=== PATIENT | male | born 1965 | race Caucasian/White ===

== ENCOUNTER 2018-12-02 12:17 | Inpatient (IN) | payer OTHER ==
[2018-12-02 12:46] VITALS: BMI 20.9
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
[2018-12-02] MEDS ORDERED: P-EPHED 60MG/TRIPROLIDI 2.5MG TABLET PO PRN (14:59)
[2018-12-02] MEDS ORDERED: MAGNESIUM HYDROX 2400MG/30ML ORAL SUSPENSION 30 ML CUP PO PRN (14:59)
[2018-12-02] MEDS ORDERED: guaiFENesin/D-METHORPHAN HB 10 ML UNIT-DOSE CUPS PO PRN (14:59)
[2018-12-02] MEDS ORDERED: hydrOXYzine PAMOATE 25 MG CAPSULE (FP) PO PRN (14:59)
[2018-12-02] MEDS ORDERED: MENTHOL/PHENOL 1 EACH UD MM PRN (14:59)
[2018-12-02] MEDS ORDERED: chlordiazePOXIDE HCL 25 MG CAPSULE PO PRN (14:59)
[2018-12-02] MEDS ORDERED: IBUPROFEN 400 MG TABLET (FP) PO PRN (14:59)
[2018-12-02] MEDS ORDERED: MAGNESIUM CITRATE 300 ML BOTTLE PO PRN (14:59)
[2018-12-02] MEDS ORDERED: LOPERAMIDE HCL 2 MG CAPSULE PO PRN (14:59)
[2018-12-02] MEDS ORDERED: NICOTINE POLACRILEX 2 MG GUM BUC PRN (14:59)
[2018-12-02] MEDS: chlordiazePOXIDE HCL 25 MG CAPSULE PO SCH ×2 (17:08→22:14)
[2018-12-02] MEDS: NICOTINE 14 MG/24 HOURS TOPICAL PATCH TD SCH (17:13)
[2018-12-02] MEDS: MELATONIN 5 MG TABLETS PO PRN (22:14)
[2018-12-02] MEDS: THIAMINE HCL 100 MG TABLET (FP) PO SCH (22:14)
[2018-12-03] MEDS: chlordiazePOXIDE HCL 25 MG CAPSULE PO SCH ×4 (06:02→22:43)
[2018-12-03] MEDS: ACETAMINOPHEN 325 MG TABLET (FP) PO PRN (06:03)
[2018-12-03] MEDS: NICOTINE 14 MG/24 HOURS TOPICAL PATCH TD SCH (10:33)
[2018-12-03] MEDS: PRENATAL VITAMINS W/ FOLIC ACID TABLET (FP) PO SCH (10:33)
[2018-12-03 10:36] LABS: ALBUMIN 3.3 g/dl (3.4-5.0); ALK PHOS 72 U/L (45-117); ANION GAP 9 MMOL/L (8-16); BILIRUBIN,TOTAL 0.4 mg/dL (0.2-1); BLOOD UREA NITROGEN 16 mg/dL (7-18); CALCIUM 9.1 mg/dL (8.5-10.1); CHLORIDE 104 mmol/L (98-107); CO2 27 mmol/L (21-32); CREATININE 0.9 mg/dL (0.55-1.3); GLUCOSE,RANDOM 88 mg/dL (74-106); POTASSIUM 3.9 mmol/L (3.5-5.1); SGOT/AST 44 U/L (15-37); SGPT/ALT 55 U/L (13-61); SODIUM 140 mmol/L (136-145); TOT PROT 6.8 g/dl (6.4-8.2)
[2018-12-03 10:55] LABS: HEMATOCRIT 40.1 % (35.4-49); MCHC 34.9 g/dl (32.0-35.9); MEAN CELL VOLUME 97.4 fl (80-96); PLATELET COUNT 335 K/MM3 (134-434); RBC 4.11 M/mm3 (4.00-5.60); RDW 13.6 % (11.9-15.9); WHITE BLOOD COUNT 5.2 K/mm3 (4.0-10.0)
--- NOTE | 2018-12-03 11:49 | EKG ---
Test Reason : Blood Pressure : / mmHG Vent. Rate : 087 BPM Atrial Rate : 087 BPM P-R Int : 144 ms QRS Dur : 078 ms QT Int : 352 ms P-R-T Axes : 080 071 067 degrees QTc Int : 423 ms NORMAL SINUS RHYTHM WITH SINUS ARRHYTHMIA NORMAL ECG NO PREVIOUS ECGS AVAILABLE Confirmed by GAURAV YOUSSEF, SEUN ([id number]) on 12/03/2018 11:49:38 AM Referred By: Confirmed By:SEUN NOLASCO MD
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
--- NOTE | 2018-12-03 16:14 | PN ---
S CIWA - CIWA Score Nausea/Vomitin-No Nausea/No Vomiting Muscle Tremors: 2 Anxiety: 2 Agitation: 1-Slight > Activity Paroxysmal Sweats: 3 Orientation: 0-Oriented Tacttile Disturbances: 0-None Auditory Disturbances: 0-None Visual Disturbances: 3-Moderate Sensitivity Headache: 0-None Present CIWA-Ar Total Score: 11 BHS Progress Note (SOAP) Subjective: Tremors, Anxious, Sweating. Objective: PATIENT A & O X 3, OBSERVED AMBULATING ON UNIT. IN NO ACUTE DISTRESS. 12/03/18 16:21 Vital Signs Temperature 97.0 F L 12/03/18 13:09 Pulse Rate 86 12/03/18 13:09 Respiratory Rate 18 12/03/18 13:09 Blood Pressure 108/71 12/03/18 13:09 O2 Sat by Pulse Oximetry (%) Laboratory Tests 12/03/18 12/03/18 12/03/18 07:00 07:00 07:00 WBC 5.2 RBC 4.11 Hgb 14.0 Hct 40.1 MCV 97.4 H MCH 34.0 H MCHC 34.9 RDW 13.6 Plt Count 335 MPV 8.0 Sodium 140 Potassium 3.9 Chloride 104 Carbon Dioxide 27 Anion Gap 9 BUN 16 Creatinine 0.9 Creat Clearance w eGFR > 60 Random Glucose 88 Calcium 9.1 Total Bilirubin 0.4 AST 44 H ALT 55 Alkaline Phosphatase 72 Total Protein 6.8 Albumin 3.3 L HIV 1&2 Antibody Screen Negative HIV P24 Antigen Negative LABS NOTED. RPR RESULT PENDING. 12/03/18 16:23 Assessment: 12/03/18 16:22 WITHDRAWAL SYMPTOMS. Plan: CONTINUE DETOX. INCREASE DAILY PO FLUID INTAKE.
[2018-12-03] MEDS: MAG HYDROX/AL HYDROX/SIMETH 30 ML UNIT-DOSE CUP PO PRN ×2 (17:36→22:42)
[2018-12-03] MEDS: THIAMINE HCL 100 MG TABLET (FP) PO SCH (22:43)
[2018-12-04] MEDS: chlordiazePOXIDE HCL 25 MG CAPSULE PO SCH ×2 (06:15→10:25)
[2018-12-04] MEDS: PRENATAL VITAMINS W/ FOLIC ACID TABLET (FP) PO SCH (10:25)
[2018-12-04] MEDS: NICOTINE 14 MG/24 HOURS TOPICAL PATCH TD SCH (10:26)
--- NOTE | 2018-12-04 14:54 | PN ---
S CIWA - CIWA Score Nausea/Vomitin-No Nausea/No Vomiting Muscle Tremors: 2 Anxiety: 3 Agitation: 0-Normal Activity Paroxysmal Sweats: 2 Orientation: 0-Oriented Tacttile Disturbances: 1-Very Mild Itch/Numbness Auditory Disturbances: 0-None Visual Disturbances: 2-Mild Sensitivity Headache: 0-None Present CIWA-Ar Total Score: 10 BHS Progress Note (SOAP) Subjective: Body Aches, Anxious, Tremors. Objective: PATIENT A & O X 3. IN NO ACUTE DISTRESS. 12/04/18 14:55 Vital Signs Temperature 98.6 F 12/04/18 13:43 Pulse Rate 85 12/04/18 13:43 Respiratory Rate 18 12/04/18 13:43 Blood Pressure 100/61 12/04/18 13:43 O2 Sat by Pulse Oximetry (%) Laboratory Tests 12/03/18 12/03/18 12/03/18 07:00 07:00 07:00 WBC 5.2 RBC 4.11 Hgb 14.0 Hct 40.1 MCV 97.4 H MCH 34.0 H MCHC 34.9 RDW 13.6 Plt Count 335 MPV 8.0 Sodium 140 Potassium 3.9 Chloride 104 Carbon Dioxide 27 Anion Gap 9 BUN 16 Creatinine 0.9 Creat Clearance w eGFR > 60 Random Glucose 88 Calcium 9.1 Total Bilirubin 0.4 AST 44 H ALT 55 Alkaline Phosphatase 72 Total Protein 6.8 Albumin 3.3 L RPR Titer HIV 1&2 Antibody Screen Negative HIV P24 Antigen Negative 12/03/18 07:00 WBC RBC Hgb Hct MCV MCH MCHC RDW Plt Count MPV Sodium Potassium Chloride Carbon Dioxide Anion Gap BUN Creatinine Creat Clearance w eGFR Random Glucose Calcium Total Bilirubin AST ALT Alkaline Phosphatase Total Protein Albumin RPR Titer Nonreactive HIV 1&2 Antibody Screen HIV P24 Antigen LABS NOTED. Assessment: 12/04/18 14:55 WITHDRAWAL SYMPTOMS. Plan: CONTINUE DETOX. INCREASE DAILY PO FLUID INTAKE.
[2018-12-04] MEDS: chlordiazePOXIDE 5 MG CAPSULE PO SCH ×2 (17:15→22:26)
[2018-12-04] MEDS: MAG HYDROX/AL HYDROX/SIMETH 30 ML UNIT-DOSE CUP PO PRN (17:17)
[2018-12-04] MEDS: THIAMINE HCL 100 MG TABLET (FP) PO SCH (22:26)
[2018-12-04] MEDS: MELATONIN 5 MG TABLETS PO PRN (22:26)
[2018-12-05] MEDS: chlordiazePOXIDE 5 MG CAPSULE PO SCH ×2 (06:19→10:03)
[2018-12-05] MEDS: MAG HYDROX/AL HYDROX/SIMETH 30 ML UNIT-DOSE CUP PO PRN (09:21)
[2018-12-05] MEDS: NICOTINE 14 MG/24 HOURS TOPICAL PATCH TD SCH (10:03)
[2018-12-05] MEDS: PRENATAL VITAMINS W/ FOLIC ACID TABLET (FP) PO SCH (10:03)
[2018-12-05] MEDS ORDERED: ONDANSETRON *ODT* 4 MG TABLET SL ONE (10:45)
--- NOTE | 2018-12-05 11:20 | PN ---
[facility] Progress Note (SOAP) Subjective: feeling better mild nausea otherwise ok Objective: 12/05/18 11:19 Vital Signs Temperature 97.8 F 12/05/18 09:26 Pulse Rate 88 12/05/18 09:26 Respiratory Rate 16 12/05/18 09:26 Blood Pressure 104/62 12/05/18 09:26 O2 Sat by Pulse Oximetry (%) Laboratory Last Values WBC 5.2 K/mm3 (4.0-10.0) 12/03/18 07:00 RBC 4.11 M/mm3 (4.00-5.60) 12/03/18 07:00 Hgb 14.0 GM/dL (11.7-16.9) 12/03/18 07:00 Hct 40.1 % (35.4-49) 12/03/18 07:00 MCV 97.4 fl (80-96) H 12/03/18 07:00 MCH 34.0 pg (25.7-33.7) H 12/03/18 07:00 MCHC 34.9 g/dl (32.0-35.9) 12/03/18 07:00 RDW 13.6 % (11.9-15.9) 12/03/18 07:00 Plt Count 335 K/MM3 (134-434) 12/03/18 07:00 MPV 8.0 fl (7.5-11.1) 12/03/18 07:00 Sodium 140 mmol/L (136-145) 12/03/18 07:00 Potassium 3.9 mmol/L (3.5-5.1) 12/03/18 07:00 Chloride 104 mmol/L (98-107) 12/03/18 07:00 Carbon Dioxide 27 mmol/L (21-32) 12/03/18 07:00 Anion Gap 9 MMOL/L (8-16) 12/03/18 07:00 BUN 16 mg/dL (7-18) 12/03/18 07:00 Creatinine 0.9 mg/dL (0.55-1.3) 12/03/18 07:00 Creat Clearance w eGFR > 60 (>60) 12/03/18 07:00 Random Glucose 88 mg/dL (74-106) 12/03/18 07:00 Calcium 9.1 mg/dL (8.5-10.1) 12/03/18 07:00 Total Bilirubin 0.4 mg/dL (0.2-1) 12/03/18 07:00 AST 44 U/L (15-37) H 12/03/18 07:00 ALT 55 U/L (13-61) 12/03/18 07:00 Alkaline Phosphatase 72 U/L (45-117) 12/03/18 07:00 Total Protein 6.8 g/dl (6.4-8.2) 12/03/18 07:00 Albumin 3.3 g/dl (3.4-5.0) L 12/03/18 07:00 RPR Titer Nonreactive (NONREACTIVE) 12/03/18 07:00 HIV 1&2 Antibody Screen Negative 12/03/18 07:00 HIV P24 Antigen Negative 12/03/18 07:00 lab noted Assessment: 12/05/18 11:20 mild withdrawal sx Plan: continue detox
[2018-12-05] MEDS: RANITIDINE HCL 150 MG TABLET (FP) PO SCH ×2 (11:53→21:46)
[2018-12-05] MEDS ORDERED: TRIMETHOBENZAMIDE HCL 200MG/2ML INJ IM ONE (16:15)
[2018-12-05] MEDS ORDERED: SUCRALFATE 1 GM TABLET (FP) PO ONE (16:15)
[2018-12-05] MEDS: chlordiazePOXIDE HCL 10 MG CAPSULE PO SCH ×2 (17:02→22:17)
[2018-12-05] MEDS: THIAMINE HCL 100 MG TABLET (FP) PO SCH (21:46)
[2018-12-06] MEDS: chlordiazePOXIDE HCL 10 MG CAPSULE PO SCH ×2 (06:48→10:08)
[2018-12-06 09:05] VITALS: BP 101/65; PULSE 83; TEMP 97
--- NOTE | 2018-12-06 09:28 | DS ---
[facility] Detox Discharge Summary Admission Date: 12/02/18 Discharge Date: 12/06/18 - History Present History: Alcohol Dependence Additional Comments: 53 years old male admitted on 12/02/18 for alcohol withdrawal stabilization completed alcohol detox regimen [facility] Physical Exam Results Vital Signs: Vital Signs Temperature 97 F L 12/06/18 09:04 Pulse Rate 83 12/06/18 09:04 Respiratory Rate 18 12/06/18 09:04 Blood Pressure 101/65 12/06/18 09:04 O2 Sat by Pulse Oximetry (%) Pertinent Admission Physical Exam Findings: alcohol withdrawal sx Laboratory Last Values WBC 5.2 K/mm3 (4.0-10.0) 12/03/18 07:00 RBC 4.11 M/mm3 (4.00-5.60) 12/03/18 07:00 Hgb 14.0 GM/dL (11.7-16.9) 12/03/18 07:00 Hct 40.1 % (35.4-49) 12/03/18 07:00 MCV 97.4 fl (80-96) H 12/03/18 07:00 MCH 34.0 pg (25.7-33.7) H 12/03/18 07:00 MCHC 34.9 g/dl (32.0-35.9) 12/03/18 07:00 RDW 13.6 % (11.9-15.9) 12/03/18 07:00 Plt Count 335 K/MM3 (134-434) 12/03/18 07:00 MPV 8.0 fl (7.5-11.1) 12/03/18 07:00 Sodium 140 mmol/L (136-145) 12/03/18 07:00 Potassium 3.9 mmol/L (3.5-5.1) 12/03/18 07:00 Chloride 104 mmol/L (98-107) 12/03/18 07:00 Carbon Dioxide 27 mmol/L (21-32) 12/03/18 07:00 Anion Gap 9 MMOL/L (8-16) 12/03/18 07:00 BUN 16 mg/dL (7-18) 12/03/18 07:00 Creatinine 0.9 mg/dL (0.55-1.3) 12/03/18 07:00 Creat Clearance w eGFR > 60 (>60) 12/03/18 07:00 Random Glucose 88 mg/dL (74-106) 12/03/18 07:00 Calcium 9.1 mg/dL (8.5-10.1) 12/03/18 07:00 Total Bilirubin 0.4 mg/dL (0.2-1) 12/03/18 07:00 AST 44 U/L (15-37) H 12/03/18 07:00 ALT 55 U/L (13-61) 12/03/18 07:00 Alkaline Phosphatase 72 U/L (45-117) 12/03/18 07:00 Total Protein 6.8 g/dl (6.4-8.2) 12/03/18 07:00 Albumin 3.3 g/dl (3.4-5.0) L 12/03/18 07:00 RPR Titer Nonreactive (NONREACTIVE) 12/03/18 07:00 HIV 1&2 Antibody Screen Negative 12/03/18 07:00 HIV P24 Antigen Negative 12/03/18 07:00 lab noted - Treatment Hospital Course: Detox Protocol Followed, Detoxed Safely, Responded well, Discharged Condition Good, Rehab Referral Accepted Patient has Accepted a Rehab Referral to: [facility] - Medication Discharge Medications: Ambulatory Orders NK [No Known Home Medication] 12/02/18 - Diagnosis (1) Alcohol dependence with uncomplicated withdrawal Current Visit: Yes Status: Acute (2) Nicotine dependence Current Visit: Yes Status: Acute Qualifiers: Nicotine product type: cigarettes Substance use status: in withdrawal Qualified Code(s): F17.213 - Nicotine dependence, cigarettes, with withdrawal (3) Crutches as ambulation aid Current Visit: Yes Status: Acute (4) Left ankle swelling Current Visit: Yes Status: Acute - AMA Did Patient Leave Against Medical Advice: No
[2018-12-06] MEDS: PRENATAL VITAMINS W/ FOLIC ACID TABLET (FP) PO SCH (10:07)
[2018-12-06] MEDS: RANITIDINE HCL 150 MG TABLET (FP) PO SCH (10:07)
[2018-12-06] MEDS: NICOTINE 14 MG/24 HOURS TOPICAL PATCH TD SCH (10:08)
[2018-12-06] MEDS: ACETAMINOPHEN 325 MG TABLET (FP) PO PRN (10:09)
== END 2018-12-06 11:58 | disposition other institution (70) | DRG 775 ==
LOC: YASAS 12:17 → Y3N 15:32
PROVIDERS: ADMIT Neuromusculoskeletal Medicine & OMM; ATTEND Neuromusculoskeletal Medicine & OMM
PROC: HZ2ZZZZ Detoxification Services for Substance Abuse Treatment (ICD-10-PCS; principal; 2018-12-02)
DX: F10.230 Alcohol dependence with withdrawal, uncomplicated (principal); F17.213 Nicotine dependence, cigarettes, with withdrawal; R00.0 Tachycardia, unspecified; M25.472 Effusion, left ankle; R26.2 Difficulty in walking, not elsewhere classified; Z99.89 Dependence on other enabling machines and devices
CPT/HCPCS: 36415; 80053; 85027; 86593; 87389; 93005; 93010; Q0162

== ENCOUNTER 2018-12-06 11:31 | Inpatient (IN) | payer OTHER ==
--- NOTE | 2018-12-06 10:01 | HP ---
[facility] Rehab Assess/Revision - Admission History Admitted to Rehab from: [facility] Date of Admission to Rehab: 12/06/18 - Findings Detox History & Physical reviewed: Yes Concur with findings: Yes Comments/Additional Findings: transferred from detox to rehab as per protocol Inpatient Rehab Admission - Initial Determination Are CD services needed?: Yes Free of communicable disease: Yes Not in need of hospitalization: Yes - Rehab Admission Criteria Previous failed treatment: Yes Poor recovery environment: Yes Comorbidities: Yes Lacks judgement: No Patient is meeting Inpatient Rehab admission criteria:: Yes
[~2018-12-06 11:31] MED LIST: IBUPROFEN 400 MG TABLET (FP) PO PRN; LOPERAMIDE HCL 2 MG CAPSULE PO PRN; MAG HYDROX/AL HYDROX/SIMETH 30 ML UNIT-DOSE CUP PO PRN; MAGNESIUM CITRATE 300 ML BOTTLE PO PRN; MAGNESIUM HYDROX 2400MG/30ML ORAL SUSPENSION 30 ML CUP PO PRN; MENTHOL/PHENOL 1 EACH UD MM PRN; NICOTINE 14 MG/24 HOURS TOPICAL PATCH TD PRN; NICOTINE POLACRILEX 2 MG GUM BUC PRN; P-EPHED 60MG/TRIPROLIDI 2.5MG TABLET PO PRN; guaiFENesin/D-METHORPHAN HB 10 ML UNIT-DOSE CUPS PO PRN
[2018-12-06] MEDS ORDERED: ONDANSETRON *ODT* 4 MG TABLET SL ONE (11:38)
[2018-12-06] MEDS ORDERED: PNEUMOC 13-VAL CONJ-DIP CRM/PF 0.5 ML DISP.SYRIN IM ONE (12:11)
[2018-12-06] MEDS: SUCRALFATE 1 GM TABLET (FP) PO SCH ×2 (12:22→17:25)
[2018-12-06] MEDS: ACETAMINOPHEN 325 MG TABLET (FP) PO PRN (19:50)
[2018-12-06] MEDS: MELATONIN 5 MG TABLETS PO PRN (21:11)
[2018-12-06] MEDS: THIAMINE HCL 100 MG TABLET (FP) PO SCH (21:11)
[2018-12-06] MEDS: RANITIDINE HCL 150 MG TABLET (FP) PO SCH (21:11)
[2018-12-07] MEDS: SUCRALFATE 1 GM TABLET (FP) PO SCH ×3 (06:27→16:53)
[2018-12-07] MEDS: RANITIDINE HCL 150 MG TABLET (FP) PO SCH ×2 (10:39→21:56)
[2018-12-07] MEDS: PRENATAL VITAMINS W/ FOLIC ACID TABLET (FP) PO SCH (10:39)
[2018-12-07] MEDS: ACETAMINOPHEN 325 MG TABLET (FP) PO PRN ×2 (10:39→22:04)
[2018-12-07] MEDS ORDERED: FLU VACCINE QUAD 60 MCG/0.5 ML (MDV 18-19) IM ONE (12:00)
[2018-12-07] MEDS ORDERED: PNEUMOCOCCAL 23 VACCINE 0.5 ML VIAL IM ONE (12:00)
[2018-12-07] MEDS: THIAMINE HCL 100 MG TABLET (FP) PO SCH (21:56)
[2018-12-07] MEDS: MELATONIN 5 MG TABLETS PO PRN (22:03)
[2018-12-08] MEDS: SUCRALFATE 1 GM TABLET (FP) PO SCH ×3 (06:23→17:05)
[2018-12-08] MEDS ORDERED: ONDANSETRON *ODT* 4 MG TABLET SL PRN (09:34)
--- NOTE | 2018-12-08 09:41 | PN ---
[facility] Progress Note Note: PATIENT SEEN FOR C/O STOMACH DISCOMFORT. PATIENT STATES HE WAS BINGE DRINKING ETOH FOR 3 DAYS STRAIGHT PRIOR TO ADMISSION. PATIENT C/O VOMITING AND STOMACH DISCOMFORT X 1 DAY. PATIENT DENIES DIARRHEA, +BM LAST NIGHT FORMED, AND FEVER. VOMITED X 2 UNWITNESSED. Vital Signs Temperature 97.9 F 12/08/18 06:52 Pulse Rate 77 12/08/18 06:52 Respiratory Rate 18 12/08/18 06:52 Blood Pressure 125/92 12/08/18 06:52 O2 Sat by Pulse Oximetry (%) PE: ALERT AND ORIENTED X 3 SKIN WARM AND DRY CAR S1S2 RESP CTA BL GI SOFT, BS+,NT EXT FULL ROM, NO VISIBLE EDEMA A/P NAUSEA AND VOMITING WILL ADD ZOFRAN PRN FOR SYMPTOMS ENCOURAGE ORAL FLUIDS CONTINUE ZANTAC ORDERED CONTINUE TO MONITOR CLINICALLY
[2018-12-08] MEDS: PRENATAL VITAMINS W/ FOLIC ACID TABLET (FP) PO SCH (10:13)
[2018-12-08] MEDS: RANITIDINE HCL 150 MG TABLET (FP) PO SCH ×2 (10:13→21:22)
[2018-12-08] MEDS: THIAMINE HCL 100 MG TABLET (FP) PO SCH (21:22)
[2018-12-08] MEDS: MELATONIN 5 MG TABLETS PO PRN (21:22)
[2018-12-09] MEDS: SUCRALFATE 1 GM TABLET (FP) PO SCH ×3 (06:03→16:50)
[2018-12-09] MEDS: PRENATAL VITAMINS W/ FOLIC ACID TABLET (FP) PO SCH (10:04)
[2018-12-09] MEDS: RANITIDINE HCL 150 MG TABLET (FP) PO SCH ×2 (10:04→21:22)
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
[2018-12-09] MEDS: THIAMINE HCL 100 MG TABLET (FP) PO SCH (21:22)
[2018-12-09] MEDS: MELATONIN 5 MG TABLETS PO PRN (21:23)
[2018-12-10] MEDS: SUCRALFATE 1 GM TABLET (FP) PO SCH ×3 (06:23→16:25)
[2018-12-10] MEDS: RANITIDINE HCL 150 MG TABLET (FP) PO SCH ×2 (10:17→21:11)
[2018-12-10] MEDS: PRENATAL VITAMINS W/ FOLIC ACID TABLET (FP) PO SCH (10:18)
--- NOTE | 2018-12-10 10:47 | PN ---
S Progress Note Note: PATIENT SEEN FOR C/O DIZZINESS. PATIENT EVALUATED AT BEDSIDE AND DENIES N/V/D, SWEATING, NERVOUSNESS AND SHAKING. PATIENT REPORTS SYMPTOMS ONLY OCCUR IN THE MORNING AND RESOLVES SPONTANEOUSLY. Vital Signs Temperature 97.5 F L 12/10/18 06:45 Pulse Rate 70 12/10/18 10:02 Respiratory Rate 18 12/10/18 06:45 Blood Pressure 112/70 12/10/18 10:02 O2 Sat by Pulse Oximetry (%) PE: ALERT AND ORIENTED X 3 SKIN WARM AND DRY CAR S1S2 RESP CTA BL EXT NO EDEMA, NO TREMORS A/P: DIZZINESS-EPISODIC WILL ORDER BGM DAILY IN THE MORNING X 3 DAYS ENCOURAGE ORAL FLUIDS CONTINUE TO MONITOR CLINICALLY
[2018-12-10] MEDS: MELATONIN 5 MG TABLETS PO PRN (21:11)
[2018-12-10] MEDS: THIAMINE HCL 100 MG TABLET (FP) PO SCH (21:11)
[2018-12-11] MEDS: SUCRALFATE 1 GM TABLET (FP) PO SCH ×3 (07:02→17:11)
[2018-12-11] MEDS: PRENATAL VITAMINS W/ FOLIC ACID TABLET (FP) PO SCH (10:17)
[2018-12-11] MEDS: RANITIDINE HCL 150 MG TABLET (FP) PO SCH ×2 (10:17→21:39)
[2018-12-11] MEDS: THIAMINE HCL 100 MG TABLET (FP) PO SCH (21:39)
[2018-12-11] MEDS: MELATONIN 5 MG TABLETS PO PRN (21:40)
[2018-12-12] MEDS: SUCRALFATE 1 GM TABLET (FP) PO SCH ×3 (06:07→17:26)
[2018-12-12] MEDS: RANITIDINE HCL 150 MG TABLET (FP) PO SCH ×2 (09:51→21:21)
[2018-12-12] MEDS: PRENATAL VITAMINS W/ FOLIC ACID TABLET (FP) PO SCH (09:51)
[2018-12-12] MEDS: THIAMINE HCL 100 MG TABLET (FP) PO SCH (21:21)
[2018-12-12] MEDS: MELATONIN 5 MG TABLETS PO PRN (21:21)
[2018-12-13] MEDS: SUCRALFATE 1 GM TABLET (FP) PO SCH ×3 (06:19→16:59)
[2018-12-13] MEDS: RANITIDINE HCL 150 MG TABLET (FP) PO SCH ×2 (10:11→21:10)
[2018-12-13] MEDS: PRENATAL VITAMINS W/ FOLIC ACID TABLET (FP) PO SCH (10:11)
[2018-12-13] MEDS: THIAMINE HCL 100 MG TABLET (FP) PO SCH (21:09)
[2018-12-13] MEDS: MELATONIN 5 MG TABLETS PO PRN (21:10)
[2018-12-14] MEDS: SUCRALFATE 1 GM TABLET (FP) PO SCH ×3 (06:31→16:42)
[2018-12-14] MEDS: RANITIDINE HCL 150 MG TABLET (FP) PO SCH ×2 (09:47→21:19)
[2018-12-14] MEDS: PRENATAL VITAMINS W/ FOLIC ACID TABLET (FP) PO SCH (09:47)
[2018-12-14] MEDS: THIAMINE HCL 100 MG TABLET (FP) PO SCH (21:18)
[2018-12-14] MEDS: MELATONIN 5 MG TABLETS PO PRN (21:19)
[2018-12-15] MEDS: SUCRALFATE 1 GM TABLET (FP) PO SCH ×3 (06:28→16:42)
[2018-12-15] MEDS: PRENATAL VITAMINS W/ FOLIC ACID TABLET (FP) PO SCH (10:12)
[2018-12-15] MEDS: RANITIDINE HCL 150 MG TABLET (FP) PO SCH ×2 (10:12→21:09)
[2018-12-15] MEDS: THIAMINE HCL 100 MG TABLET (FP) PO SCH (21:09)
[2018-12-15] MEDS: MELATONIN 5 MG TABLETS PO PRN (21:09)
[2018-12-16] MEDS: SUCRALFATE 1 GM TABLET (FP) PO SCH ×3 (06:32→17:26)
[2018-12-16 06:48] VITALS: TEMP 97.8
--- NOTE | 2018-12-16 10:27 | PN ---
[facility] Progress Note Note: REHAB DISCHARGE NOTE: PATIENT IS SCHEDULED FOR DISCHARGE TOMORROW FROM REHAB. PATIENT STATES HE ACHIEVED ALL REHAB GOALS AND AFTERCARE IS ARRANGED FOR [facility] AT [facility]. PATIENT IS CLINICALLY STABLE AT THIS TIME AND HE DENIES SI/HI. PATIENT ENCOURAGED TO CONTINUE WITH AFTER CARE TO PREVENT RELAPSE AND ENCOURAGED TO FOLLOW UP WITH PCP WITHIN ONE WEEK OF D/C TO CONTINUE MEDICAL MANAGEMENT. Vital Signs Temperature 97.8 F 12/16/18 06:48 Pulse Rate 93 H 12/16/18 06:48 Respiratory Rate 18 12/16/18 06:48 Blood Pressure 141/69 12/16/18 06:48 O2 Sat by Pulse Oximetry (%)
[2018-12-16] MEDS: RANITIDINE HCL 150 MG TABLET (FP) PO SCH ×2 (10:31→21:17)
[2018-12-16] MEDS: ACETAMINOPHEN 325 MG TABLET (FP) PO PRN (10:31)
[2018-12-16] MEDS: PRENATAL VITAMINS W/ FOLIC ACID TABLET (FP) PO SCH (10:32)
[2018-12-16] MEDS: THIAMINE HCL 100 MG TABLET (FP) PO SCH (21:17)
[2018-12-17] MEDS: SUCRALFATE 1 GM TABLET (FP) PO SCH (06:20)
[2018-12-17 06:44] VITALS: BP 121/82; PULSE 80
[2018-12-17] MEDS: RANITIDINE HCL 150 MG TABLET (FP) PO SCH (09:39)
[2018-12-17] MEDS: PRENATAL VITAMINS W/ FOLIC ACID TABLET (FP) PO SCH (09:39)
== END 2018-12-17 09:45 | disposition home or self-care (01) | DRG 772 ==
LOC: YASAS 11:31 → Y3W 11:32
PROVIDERS: ADMIT Neuromusculoskeletal Medicine & OMM; ATTEND Neuromusculoskeletal Medicine & OMM
PROC: HZ42ZZZ Group Counseling for Substance Abuse Treatment, Cognitive-Behavioral (ICD-10-PCS; principal; 2018-12-06)
DX: F10.230 Alcohol dependence with withdrawal, uncomplicated (principal); F17.213 Nicotine dependence, cigarettes, with withdrawal; M25.472 Effusion, left ankle; M79.89 Other specified soft tissue disorders; R26.89 Other abnormalities of gait and mobility; Z99.89 Dependence on other enabling machines and devices
CPT/HCPCS: 82962; Q0162